=== PATIENT | male | born 1995 | race Hispanic/Latino ===

== ENCOUNTER 2020-01-02 17:14 | Emergency (ER) | payer BC ==
--- OUTSIDE RECORDS SUMMARY | 2020-01-02 17:16 | XMS REPORT | Continuity of Care Document ---
:1995 Author Organization [facility] t Address [address] [place] [address] Dr. Shirley [address] [place] [id number] Care Team Providers Name Role Phone Unavailable Unavailable Unavailable Problems This patient has no known problems. Allergies, Adverse Reactions, Alerts This patient has no known allergies or adverse reactions. Medications This patient has no known medications. Procedures This patient has no known procedures. Results This patient has no known results.
--- NOTE | 2020-01-02 19:58 | ER ---
Nurse's Notes [facility] Name: Sekou Rao Jr Age: 24 yrs Sex: Male : 1995 Arrival Date: 01/02/2020 Time: 17:17 Bed 24 Private MD: Diagnosis: Chest pain, unspecified Presentation: 01/01 17:31 Chief complaint: Patient states: Nipple pain and tenderness (R) for 3 years. States the ll1 pain messes with his tourettes. Left nipple pain just started hurting for a few days. Burning pain into neck. Coronavirus screen: Client denies travel out of the [place] in the last 14 days. At this time, the client does not indicate any symptoms associated with coronavirus-19. Ebola Screen: Patient denies travel to an Ebola-affected area in the 21 days before illness onset. Initial Sepsis Screen: Does the patient meet any 2 criteria? No. Patient's initial sepsis screen is negative. Risk Assessment: Do you want to hurt yourself or someone else? Patient reports no desire to harm self or others. Onset of symptoms was December 08, 2016. 17:31 Method Of Arrival: Ambulatory [facility] 17:31 Acuity: JORGE LUIS 4 1 19:34 Initial Sepsis Screen: Does the patient have a suspected source of infection? No. ll1 Patient's initial sepsis screen is negative. Historical: - Allergies: 17:34 No Known Allergies; ll1 - PMHx: 17:34 Tourrettes; ll1 - PSHx: 17:34 None; ll1 - Immunization history:: Flu vaccine is not up to date. - Social history:: Smoking status: Patient denies any tobacco usage or history of. Patient/guardian denies using street drugs. Screenin:34 Abuse screen: Denies threats or abuse. Nutritional screening: No deficits noted. ll1 Tuberculosis screening: No symptoms or risk factors identified. Fall Risk None identified. Total Logan Fall Scale indicates No Risk (0-24 pts). Assessment: 19:32 General: Appears in no apparent distress. Behavior is calm, cooperative. Pain: ll1 Complains of pain in nipples, left side of neck Quality of pain is described as aching, Pain began years ago. Is intermittent. Neuro: Level of Consciousness is awake, alert, obeys commands, Oriented to person, place, time, situation, Appropriate for age Clinical Allergist are equal bilaterally Moves all extremities. Full function Gait is steady, Speech is normal, Facial symmetry appears normal, Reports burning pain to left side of neck. Cardiovascular: Reports nipple tenderness and pain. Right nipple 3 years. Left nipple a few days. Heart tones S1 S2 Capillary refill < 3 seconds Clubbing of nail beds is absent Patient's skin is warm and dry. Respiratory: No deficits noted. GI: No deficits noted. 20:04 Pain: Pain radiates to L neck. ll1 Vital Signs: 17:31 BP 136 / 88; Pulse 89; Resp 18; Temp 98.6; Pulse Ox 99% ; Weight 90.72 kg; Height 5 ft. ll1 8 in. (172.72 cm); Pain 7/10; 20:03 BP 119 / 77; Pulse 72; Resp 17; Pulse Ox 99% ; Pain 0/10; ll1 17:31 Body Mass Index 30.41 (90.72 kg, 172.72 cm) ll1 ED Course: 17:17 Patient arrived in ED. ds1 17:34 Triage completed. 1 17:34 Arm band placed on Patient notified of wait time. 1 19:32 Ora King RN is Primary Nurse. ll1 19:33 Teddy Alfaro PA is PHCP. [facility] 19:34 Juanito Malhotra MD is Attending Physician. [facility] 19:34 Patient has correct armband on for positive identification. Bed in low position. Call ll1 light in reach. Side rails up X 1. Pulse ox on. NIBP on. 20:03 No provider procedures requiring assistance completed. Patient did not have IV access ll1 during this emergency room visit. Patient maintains SpO2 saturation greater than 95% on room air. Administered Medications: No medications were administered Outcome: 19:58 Discharge ordered by . malka 20:03 Discharged to home ambulatory. ll1 20:03 Condition: stable 20:03 Discharge instructions given to patient, Instructed on discharge instructions, follow up and referral plans. no drinking with medication, medication usage, Demonstrated understanding of instructions, follow-up care, medications, Prescriptions given X 1. 20:04 Patient left the ED. ll1 Signatures: Teddy Alfaro PA PA Melinda Parker ds1 Fernando, Lynsay, RN RN ll1
--- NOTE | 2020-01-02 19:59 | EDPHYS ---
Physician Documentation [facility] Name: Sekou Rao Jr Age: 24 yrs Sex: Male : 1995 Arrival Date: 01/02/2020 Time: 17:17 Bed 24 Private MD: ED Physician Juanito Malhotra HPI: 01/01 19:35 This 24 yrs old Male presents to ER via Ambulatory with complaints of Pain - jmm nipple. 19:35 The patient or guardian reports chest pain that is located primarily in the anterior jmm chest wall, left. The pain does not radiate. This is a 24 year old male with a history of tourrettes that presents to the ED with complaints of left nipple tenderness and sensitivity. Patient states the symptoms have been ongoing for a few weeks to the left nipple. Patient states he has had sensitivity and tenderness to his right nipple beginning 3 days ago. Saw his pcp and prescribed sertraline a few days ago. . Historical: - Allergies: 17:34 No Known Allergies; ll1 - PMHx: 17:34 Tourrettes; ll1 - PSHx: 17:34 None; ll1 - Immunization history:: Flu vaccine is not up to date. - Social history:: Smoking status: Patient denies any tobacco usage or history of. Patient/guardian denies using street drugs. ROS: 19:35 Constitutional: Negative for fever, chills, and weight loss, Cardiovascular: Negative jmm for chest pain, palpitations, and edema, Respiratory: Negative for shortness of breath, cough, wheezing, and pleuritic chest pain. 19:35 All other systems are negative. Exam: 19:35 Constitutional: This is a well developed, well nourished patient who is awake, alert, jmm and in no acute distress. Head/Face: atraumatic. Eyes: EOMI, no conjunctival erythema appreciated ENT: Moist Mucus Membranes Neck: Trachea midline, Supple Chest/axilla: Normal chest wall appearance and motion. Cardiovascular: Regular rate and rhythm. No edema appreciated Respiratory: Normal respirations, no respiratory distress appreciated Abdomen/GI: Non distended, soft Back: Normal ROM Skin: General appearance color normal MS/ Extremity: Moves all extremities, no obvious deformities appreciated, no edema noted to the lower extremities Neuro: Awake and alert, normal gait Psych: Behavior is normal, Mood is normal, Patient is cooperative and pleasant Vital Signs: 17:31 BP 136 / 88; Pulse 89; Resp 18; Temp 98.6; Pulse Ox 99% ; Weight 90.72 kg; Height 5 ft. ll1 8 in. (172.72 cm); Pain 7/10; 20:03 BP 119 / 77; Pulse 72; Resp 17; Pulse Ox 99% ; Pain 0/10; ll1 17:31 Body Mass Index 30.41 (90.72 kg, 172.72 cm) ll1 MDM: 19:35 Patient medically screened. [facility] 19:56 Data reviewed: vital signs, nurses notes. Counseling: I had a detailed discussion with [facility] the patient and/or guardian regarding: the historical points, exam findings, and any diagnostic results supporting the discharge/admit diagnosis, the need for outpatient follow up, to return to the emergency department if symptoms worsen or persist or if there are any questions or concerns that arise at home. 19:56 Counseling: I had a detailed discussion with the patient and/or guardian regarding:. [facility] Administered Medications: No medications were administered Disposition: 01/02 06:48 Co-signature as Attending Physician, Juanito Malhotra MD. [email or web address] Disposition: 01/02/20 19:58 Discharged to Home. Impression: Chest pain, unspecified. - Condition is Stable. - Discharge Instructions: Nonspecific Chest Pain. - Prescriptions for Hydroxyzine HCl 50 mg Oral Tablet - take 1 tablet by ORAL route every 8 hours As needed; 20 tablet. - Medication Reconciliation Form, Thank You Letter, Antibiotic Education, Prescription Opioid Use form. - Follow up: Private Physician; When: 2 - 3 days; Reason: Recheck today's complaints, Continuance of care, Re-evaluation by your physician. Signatures: Teddy Alfaro PA PA [facility] Ora King RN RN 1 Juanito Malhotra MD MD [email or web address] Corrections: (The following items were deleted from the chart) 01/01 20:04 19:58 01/02/2020 19:58 Discharged to Home. Impression: Chest pain, unspecified. ll1 Condition is Stable. Forms are Medication Reconciliation Form, Thank You Letter, Antibiotic Education, Prescription Opioid Use. Follow up: Private Physician; When: 2 - 3 days; Reason: Recheck today's complaints, Continuance of care, Re-evaluation by your physician. malka
[2020-01-02 20:41] VITALS: TEMP 98.6; O2SAT 99
[2020-01-02 20:42] VITALS: BP 119/77
== END 2020-01-02 20:04 | disposition home or self-care (01) ==
LOC: ER 17:14
DX: R07.9 Chest pain, unspecified (principal)
CPT/HCPCS: 99284